=== PATIENT | female | born 1955 | race African-American/Black ===

== ENCOUNTER 2017-09-12 05:11 | Inpatient (IN) | payer MEDICARE, MEDICAID ==
[2017-09-12] VITALS (10 sets, daily range): BP systolic 130–177; BP diastolic 66–99
[~2017-09-12] VITALS: Ht 167.6 cm; Wt 124.8 kg
[2017-09-12] MEDS ORDERED: ASPI-1159 PO (05:30)
[2017-09-12] MEDS ORDERED: METO-385 PO (05:30)
[2017-09-12] MEDS ORDERED: GLIP5TAB12 PO (05:30)
[2017-09-12] MEDS ORDERED: CLOP75TA16 PO (05:30)
[2017-09-12] MEDS ORDERED: LIP40 PO (05:30)
[2017-09-12] MEDS ORDERED: ACETAMINOPHEN 325MG TABLET PO PRN ×2 (06:00→13:00)
[2017-09-12] MEDS ORDERED: MORPHINE SULFATE 4 MG/ML CPJ (NOT FOR IM USE) IV PRN (06:00)
[2017-09-12] MEDS ORDERED: NITROGLYCERIN OINT 1GM/INCH UDPKT TD SCH (06:00)
[2017-09-12] MEDS ORDERED: LEVOFLOXACIN 500MG PREMIX 100 ML IV SCH ×2 (06:00→13:00)
[2017-09-12] MEDS ORDERED: HYDROCODONE/ACETAMINOPHEN 5/325MG TABLET PO PRN (06:00)
[2017-09-12] MEDS ORDERED: CLONIDINE 0.1MG TABLET PO PRN (06:00)
[2017-09-12] MEDS ORDERED: ONDANSETRON HCL 4MG/2ML VIAL IV PRN ×2 (06:00→13:00)
[2017-09-12] MEDS ORDERED: DEXT 5%/0.9% NACL 1,000 ML IV SCH (07:15)
[2017-09-12] MEDS: NITROGLYCERIN OINT 1GM/INCH UDPKT TD SCH ×4 (09:00→22:25)
[2017-09-12] MEDS: CYPROHEPTADINE HCL 4 MG TABLET PO SCH ×3 (09:00→17:00)
[2017-09-12] MEDS: AMLODIPINE 5MG TABLET PO SCH ×2 (09:00→17:19)
[2017-09-12] MEDS: METOPROLOL TARTRATE 50MG TABLET PO SCH ×2 (09:00→17:19)
[2017-09-12] MEDS ORDERED: CLOPIDOGREL 75MG TABLET PO SCH (09:00)
[2017-09-12] MEDS: DIAZEPAM 5 MG TABLET PO SCH ×2 (09:00→18:50)
[2017-09-12] MEDS: FLUOXETINE HCL 20MG CAPSULE PO SCH ×2 (09:00→17:18)
[2017-09-12] MEDS ORDERED: ENOXAPARIN 80MG/0.8ML SYR SUBCUT SCH (09:00)
[2017-09-12] MEDS: DIPHENHYDRAMINE 50MG CAPSULE PO SCH ×2 (09:00→17:00)
[2017-09-12] MEDS ORDERED: ASPIRIN 325MG EC TABLET PO SCH (09:00)
[2017-09-12] MEDS: ENALAPRIL 10MG TABLET PO SCH ×2 (09:00→20:15)
[2017-09-12 09:38] LABS: BASOPHILS % 1.2 % (0.0-2.0); EOSINOPHILS % 0.8 % (0.0-5.0); HEMATOCRIT. 35.7 % (36.0-48.0); HEMOGLOBIN. 11.6 g/dL (12.0-16.0); LYMPHOCYTES % 26.9 % (20.0-50.0); MEAN CORPUSCULAR HEMOGLOBIN 28.2 pg (28.0-32.0); MEAN CORPUSCULAR VOLUME 87.1 fL (81.0-99.0); MEAN PLATELET VOLUME 7.6 fl (7.4-10.4); MONOCYTES % 4.9 % (2.0-8.0); NEUTROPHILS % 66.2 % (40.0-76.0); PLATELET 375 x1000/uL (130-400); RED CELL DISTRIBUTION WIDTH 17.9 % (11.6-14.6)
[2017-09-12 09:45] LABS: PROTHROMBIN TIME 10.7 sec (9.4-11.6)
[2017-09-12 09:50] LABS: CHLORIDE 105 mEq/L (98-107)
[2017-09-12] MEDS ORDERED: LIDOCAINE HCL/PF 1% 10 MG/ML 5ML VIAL ONE (11:26)
[2017-09-12] MEDS ORDERED: MIDAZOLAM HCL 2 MG/2 ML VIAL ONE (11:51)
[2017-09-12] MEDS ORDERED: FENTANYL CITRATE/PF 50MCG/ML 2ML VIAL ONE (11:51)
[2017-09-12] MEDS ORDERED: IOHEXOL-300 100 ML BOTTLE ONE ×2 (11:52→12:32)
[2017-09-12] MEDS ORDERED: IOVERSOL 240MG/ML 100ML BOTTLE IV ONE (12:27)
[2017-09-12] MEDS ORDERED: CLOPIDOGREL 75MG TABLET ONE (12:55)
[2017-09-12] MEDS ORDERED: ASPIRIN 325MG TABLET ONE (12:55)
[2017-09-12] MEDS ORDERED: CEFAZOLIN 1000MG PREMIX 50 ML IV ONE (12:55)
[2017-09-12] MEDS ORDERED: MORPHINE SULFATE 2 MG/ML CPJ (NOT FOR IM USE) IV PRN (13:00)
[2017-09-12] MEDS ORDERED: ATROPINE SULFATE 1MG/10ML SYR IV PRN (13:00)
[2017-09-12] MEDS ORDERED: CLOPIDOGREL 75MG TABLET PO ONE (13:00)
[2017-09-12] MEDS ORDERED: HEPARIN SODIUM 1,000 UNIT/1ML VIAL IV ONE ×2 (14:35→14:41)
[2017-09-12] MEDS ORDERED: NITROGLYCERIN 50MCG/ML 10ML VIAL (CATH LAB) IV ONE (15:13)
[2017-09-12] MEDS ORDERED: NICARDIPINE 100MCG/ML 10ML VIAL (CATH LAB) IV ONE (15:13)
[2017-09-12] MEDS: SODIUM CHLORIDE 0.45% 1,000 ML IV SCH ×2 (15:35→21:00)
[2017-09-12] MEDS ORDERED: CEFAZOLIN 1000MG PREMIX 50 ML IV SCH (20:00)
[2017-09-12] MEDS ORDERED: ATORVASTATIN CALCIUM 40MG TABLET PO SCH (21:00)
[2017-09-12] MEDS ORDERED: TEMAZEPAM 15MG CAPSULE PO PRN (21:00)
[2017-09-13] MEDS ORDERED: LEVOFLOXACIN 500MG TABLET PO SCH
[2017-09-13 00:26] VITALS: BP 116/63
[2017-09-13 04:18] VITALS: BP 133/67
[2017-09-13 06:14] VITALS: BP 172/87
[2017-09-13] MEDS: NITROGLYCERIN OINT 1GM/INCH UDPKT TD SCH (06:16)
[2017-09-13] MEDS: DIPHENHYDRAMINE 50MG CAPSULE PO SCH (08:17)
[2017-09-13] MEDS: ENALAPRIL 10MG TABLET PO SCH (08:18)
[2017-09-13] MEDS: CYPROHEPTADINE HCL 4 MG TABLET PO SCH (08:18)
[2017-09-13] MEDS: FLUOXETINE HCL 20MG CAPSULE PO SCH (08:18)
[2017-09-13] MEDS: AMLODIPINE 5MG TABLET PO SCH (08:19)
[2017-09-13] MEDS: DIAZEPAM 5 MG TABLET PO SCH (08:19)
[2017-09-13] MEDS: METOPROLOL TARTRATE 50MG TABLET PO SCH (08:19)
[2017-09-13 08:30] VITALS: BP 160/86
[2017-09-13] MEDS ORDERED: CLOPIDOGREL 75MG TABLET PO SCH (09:00)
[2017-09-13] MEDS ORDERED: ASPIRIN 325MG TABLET PO SCH (09:00)
[2017-09-13 12:20] VITALS: BP 113/77
[2017-09-13 12:36] VITALS: BP 113/77
== END 2017-09-13 13:00 | disposition home or self-care (01) | DRG 246 ==
LOC: 3WST 05:11
PROVIDERS: ADMIT Internal Medicine Nephrology; ATTEND Internal Medicine Nephrology
PROC: 027034Z Dilation of Coronary Artery, One Artery with Drug-eluting Intraluminal Device, Percutaneous Approach (ICD-10-PCS; principal; 2017-09-12)
PROC: 4A023N7 Measurement of Cardiac Sampling and Pressure, Left Heart, Percutaneous Approach (ICD-10-PCS; 2017-09-12)
PROC: B2111ZZ Fluoroscopy of Multiple Coronary Arteries using Low Osmolar Contrast (ICD-10-PCS; 2017-09-12)
DX: T82.855A Stenosis of coronary artery stent, initial encounter (principal); I21.4 Non-ST elevation (NSTEMI) myocardial infarction; I11.9 Hypertensive heart disease without heart failure; E11.9 Type 2 diabetes mellitus without complications; D72.829 Elevated white blood cell count, unspecified; D64.9 Anemia, unspecified; E78.5 Hyperlipidemia, unspecified; I25.110 Atherosclerotic heart disease of native coronary artery with unstable angina pectoris; K21.9 Gastro-esophageal reflux disease without esophagitis; F12.90 Cannabis use, unspecified, uncomplicated; F17.210 Nicotine dependence, cigarettes, uncomplicated; Y83.1 Surgical operation with implant of artificial internal device as the cause of abnormal reaction of the patient, or of later complication, without mention of misadventure at the time of the procedure; Z92.21 Personal history of antineoplastic chemotherapy; I25.2 Old myocardial infarction; Z85.828 Personal history of other malignant neoplasm of skin; Z83.3 Family history of diabetes mellitus; Z82.49 Family history of ischemic heart disease and other diseases of the circulatory system; Z79.02 Long term (current) use of antithrombotics/antiplatelets; Z79.82 Long term (current) use of aspirin; Z85.118 Personal history of other malignant neoplasm of bronchus and lung; Y92.89 Other specified places as the place of occurrence of the external cause
CPT/HCPCS: 36415; 71045; 80048; 83735; 83880; 84484; 85025; 85610; 93005; 93306; 93971; C1893; J0690; J1644; J1956; J2250; J3010; J3490; J7042; Q0163; Q9967